=== PATIENT | female | born 1955 | race Caucasian/White ===

== ENCOUNTER 2018-05-08 22:52 | Emergency (ER) | payer OTHER | END 2018-05-09 02:12 | disposition home or self-care (01) | LOC: FTE 22:52 | DX: J40 Bronchitis, not specified as acute or chronic (principal) | CPT/HCPCS: 99283; Z7502 ==

== ENCOUNTER 2018-05-10 14:35 | Emergency (ER) | payer OTHER ==
[2018-05-10] MEDS: DEXAMETHASONE 10 MG/ML 1 ML INJ IM (15:39)
[2018-05-10] MEDS: IPRATROPIUM (NEB) 0.5 MG/2.5 ML AMP HHN (16:02)
[2018-05-10] MEDS: ALBUTEROL 0.083% (NEB) 2.5 MG/3 ML AMP HHN (16:02)
[2018-05-10] MEDS: PROMETHAZINE/CODEINE 5ML CUP PO (16:57)
[2018-05-10] MEDS: ONDANSETRON (ODT) 4 MG TAB ODT (16:57)
[2018-05-10] MEDS: ACETAMINOPHEN 325 MG TAB PO (16:57)
== END 2018-05-10 17:22 | disposition home or self-care (01) ==
LOC: FTE 14:35
DX: R09.89 Other specified symptoms and signs involving the circulatory and respiratory systems (principal); R07.9 Chest pain, unspecified
CPT/HCPCS: 71045; 93005; 94664; 96372; 99284-25